=== PATIENT | male | born 1970 | race Two or more races ===

== ENCOUNTER → 2019-11-06 | Emergency (ER) | payer OTHER ==
[~2019-11-06] VITALS: Ht 167.6 cm; Wt 66.7 kg
[~2019-11-06] MED LIST: LORazepam 2MG/ML-1ML VIAL IV ONE; SODIUM CHLORIDE 0.9% 1,000 ML IV ONE; fentaNYL Drip 2500mCg/250mlNS 250 ML IV ONE
[2019-11-06 12:07] LABS: Basophils # (auto) 0 10 ^3/uL (0-0.2); Basophils % (auto) 0.4 % (0.0-2.0); Eosinophils # (auto) 0.1 10 ^3/uL (0-0.8); Hematocrit 50.5 % (41.0-53.0); Hemoglobin 17.4 g/dL (13.5-17.5); Lymphocytes # (auto) 0.9 10 ^3/uL (0.4-5.4); Lymphocytes % (auto) 13.6 % (10.0-50.0); Mean Corpuscular Hemoglobin 31.7 pg (28.0-32.0); Mean Corpuscular Hgb Conc. 34.5 g/dL (32.0-36.0); Monocytes # (auto) 0.3 10 ^3/uL (0-1.3); Monocytes % (auto) 4.9 % (0.0-12.0); Neutrophils # (auto) 5.6 10 ^3/uL (1.6-8.6); Neutrophils % (auto) 80.1 % (37.0-80.0); Nucleated Red Blood Cells % 0.1 %; Platelet Count (auto) 189 10^3/uL (140-450); Red Blood Cells 5.49 10^6/uL (4.5-5.90); Red Cell Distribution Width 12.8 % (11.8-14.3)
[2019-11-06 12:34] LABS: Alanine Aminotransferase 29 U/L (16-61); Albumin 3.6 g/dL (3.4-5.0); Anion Gap 9 (5-15); Blood Urea Nitrogen 9 mg/dL (7-18); Calcium 8.6 mg/dL (8.5-10.1); Carbon Dioxide 24 mmol/L (21-32); Chloride 108 mmol/L (98-107); Glucose 143 mg/dL (74-106); Potassium 3.7 mmol/L (3.5-5.1); Sodium 141 mmol/L (136-145)
[2019-11-06 12:39] LABS: Alkaline Phosphatase 67 U/L (45-117); Aspartate Aminotransferase 17 U/L (15-37); BUN/Creatinine Ratio 11.3; Bilirubin, Total 0.8 mg/dL (0.2-1.0); GFR African American 132 mL/min; GFR Non-African American 109 mL/min; Total Protein 7.1 g/dL (6.4-8.2)
[2019-11-06 13:26] VITALS: BP 123/70
== END | disposition home or self-care (01) ==
LOC: ER 11:27
DX: R42 Dizziness and giddiness (principal); I10 Essential (primary) hypertension
CPT/HCPCS: 36415; 70450; 80053; 84484; 85025; 93005; 96361; 96374; 99285; J2060; J7030

== ENCOUNTER 2021-09-29 20:12 | Emergency (ER) | payer OTHER ==
[~2021-09-29] VITALS: Ht 167.6 cm; Wt 66.7 kg
[2021-09-29] MEDS ORDERED: ASPirin 325 MG TAB PO STA (20:44)
[2021-09-29] MEDS ORDERED: ALPRAZolam 0.5 MG TAB PO ONE (20:45)
[2021-09-29 21:32] LABS: Basophils # (auto) 0 10 ^3/uL (0-0.2); Basophils % (auto) 0.7 % (0.0-2.0); Eosinophils # (auto) 0.1 10 ^3/uL (0-0.8); Eosinophils % (auto) 1.2 % (0.0-7.0); Hematocrit 48.9 % (41.0-53.0); Hemoglobin 17.1 g/dL (13.5-17.5); Lymphocytes % (auto) 18.4 % (10.0-50.0); Mean Corpuscular Hemoglobin 32.3 pg (28.0-32.0); Mean Corpuscular Hgb Conc. 34.9 g/dL (32.0-36.0); Mean Corpuscular Volume 92.6 fL (80.0-100.0); Monocytes # (auto) 0.4 10 ^3/uL (0-1.3); Monocytes % (auto) 6.8 % (0.0-12.0); Neutrophils # (auto) 3.8 10 ^3/uL (1.6-8.6); Neutrophils % (auto) 72.9 % (37.0-80.0); Nucleated Red Blood Cells % 0.1 %; Red Blood Cells 5.28 10^6/uL (4.5-5.90); Red Cell Distribution Width 12.7 % (11.8-14.3); White Blood Cell 5.2 10^3/uL (4.4-10.8)
[2021-09-29 21:48] LABS: Calcium 8.6 mg/dL (8.5-10.1); Magnesium 2.7 mg/dL (1.6-2.6); Potassium 3.7 mmol/L (3.5-5.1)
[2021-09-29 22:06] LABS: BUN/Creatinine Ratio 12.5; Bilirubin, Total 0.9 mg/dL (0.2-1.0); Total Protein 7.1 g/dL (6.4-8.2)
[2021-09-29 22:49] LABS: Urine WBC None Seen /hpf (0 - 3)
[2021-09-29 23:05] LABS: Urine Bacteria NONE SEEN /hpf (None Seen); Urine Blood Negative /uL (Negative); Urine Specific Gravity 1.001 (1.001-1.035)
[2021-09-29 23:53] VITALS: BP 128/82
== END 2021-09-29 23:55 | disposition home or self-care (01) ==
LOC: ER 20:15
DX: R07.89 Other chest pain (principal)
CPT/HCPCS: 36415; 71045; 80053; 81001; 83735; 84484; 85025; 93005